=== PATIENT | male | born 1955 | race Caucasian/White ===

== ENCOUNTER 2024-01-11 05:58 | Day surgery (SDC) | payer MEDICARE ==
[2024-01-08 11:08] LABS: BASOPHILS % (AUTO) 0.5 % (0-1); EOSINOPHILS # (AUTO) 0.1 X10'3 (0-0.9); EOSINOPHILS % (AUTO) 1.9 % (0-6); HEMATOCRIT 43.6 % (42.0-52.0); HEMOGLOBIN 14.7 g/dl (14.0-17.9); LYMPHOCYTES # (AUTO) 2.1 X10'3 (1.1-4.8); LYMPHOCYTES % (AUTO) 33.4 % (21-51); MEAN CORPUSCULAR HGB CONC 33.8 g/dL (33.0-36.5); MEAN CORPUSCULAR VOLUME 88.8 FL (78-98); MEAN PLATELET VOLUME 6.8 FL (7.4-10.4); MONOCYTES # (AUTO) 0.5 X10'3 (0-0.9); MONOCYTES % (AUTO) 8.4 % (2-12); NEUTROPHILS # (AUTO) 3.4 X10'3 (1.8-7.7); NEUTROPHILS % (AUTO) 55.8 % (42-75); PLATELET COUNT 250 X10'3 (140-440); RED BLOOD COUNT 4.91 X10'6 (4.70-6.10); RED CELL DISTRIBUTION WIDTH 15.1 % (11.5-14.5); WHITE BLOOD COUNT 6.2 X10'3 (4.5-11.0)
[2024-01-08 11:18] LABS: APTT 31 SECONDS (22-32); PROTHROMBIN TIME 9.8 SECONDS (9.0-12.0)
[2024-01-08 11:19] LABS: ALBUMIN 3.3 G/DL (3.4-5.0); ANION GAP 12 (8-16); BLOOD UREA NITROGEN 17 MG/DL (7-18); BUN/CREATININE RATIO 25.8 (10.0-20.0); CALCIUM 8.9 MG/DL (8.5-10.1); CHLORIDE 107 MMOL/L (99-107); CREATININE 0.66 MG/DL (0.60-1.10); GLUCOSE 109 MG/DL (70-104); SODIUM 144 MMOL/L (135-145); TOTAL CARBON DIOXIDE 25.4 MMOL/L (24-32); eGFR > 90 ML/MIN
[2024-01-08 11:59] LABS: INR 0.9 INR
[~2024-01-11] VITALS: Ht 172.7 cm; Wt 75.6 kg
[2024-01-11] VITALS (10 sets, daily range): BP systolic 122–144; BP diastolic 62–79; PULSE 58–79; RESP 16–18; TEMP 98.6; O2SAT 95–97
[2024-01-11] MEDS ORDERED: MULT-1085 PO (06:22)
[2024-01-11] MEDS ORDERED: potassium (06:22)
[2024-01-11] MEDS ORDERED: OMEG1CAP46 PO (06:22)
[2024-01-11] MEDS ORDERED: CHOL200080 PO (06:23)
[2024-01-11] MEDS ORDERED: VITA-321 (06:24)
[2024-01-11] MEDS ORDERED: LORazepam 0.5 MG tablet PO PRN (06:30)
[2024-01-11] MEDS: diphenhydrAMINE 25mg capsule PO PRN (07:12)
[2024-01-11] MEDS ORDERED: midazolam 1 mg/ML 2ml injection ONE (07:28)
[2024-01-11] MEDS ORDERED: heparin 1,000unit/ml 10ml vial 10 ML ONE (07:28)
[2024-01-11] MEDS ORDERED: fentaNYL/PF 50MCG/1 ML 2ML syringe ONE (07:28)
[2024-01-11] MEDS ORDERED: iohexol 350MG/ML 100ml bottle IV ONE (07:28)
[2024-01-11] MEDS ORDERED: LIDOcaine 1% (10mg/ml) 2ml vial ONE (07:28)
[2024-01-11] MEDS ORDERED: verapamil 2.5 mg/ml inj IV ONE (07:28)
[2024-01-11] MEDS ORDERED: iohexol 350 MG/ML 50ML vial IV ONE (07:28)
[2024-01-11] MEDS ORDERED: nitroGLYCERIN 500mcg/5mL D5W 5 ML IV ONE (07:29)
[2024-01-11 08:55] LABS: ISTAT HGB ART 13.6 g/dl (14.0-17.9); ISTAT Hct ART 40 %PCV (42-52); ISTAT O2 SATURATION ARTERIAL 90 % (95-98); ISTAT SOURCE ART
[2024-01-11 09:02] LABS: ISTAT HGB MIX 13.6 g/dl (14.0-17.9); ISTAT Hct MIX 40 %PCV (42-52); ISTAT O2 SATURATION MIX VENOUS 59 % (60-80); ISTAT SOURCE VEN
[2024-01-11] MEDS ORDERED: normal saline 1000ml 1,000 ML IV ONE (09:55)
== END 2024-01-11 13:05 | disposition home or self-care (01) ==
LOC: SSTAY O 05:58
PROVIDERS: ATTEND Internal Medicine Cardiovascular Disease
DX: I42.9 Cardiomyopathy, unspecified (principal); I25.10 Atherosclerotic heart disease of native coronary artery without angina pectoris; I11.0 Hypertensive heart disease with heart failure; I50.1 Left ventricular failure, unspecified; E78.5 Hyperlipidemia, unspecified; J44.9 Chronic obstructive pulmonary disease, unspecified; E11.9 Type 2 diabetes mellitus without complications; I44.7 Left bundle-branch block, unspecified; Z79.899 Other long term (current) drug therapy; Z87.891 Personal history of nicotine dependence; Z98.890 Other specified postprocedural states; Z98.52 Vasectomy status; Z79.01 Long term (current) use of anticoagulants; Z83.3 Family history of diabetes mellitus; Z82.49 Family history of ischemic heart disease and other diseases of the circulatory system
CPT/HCPCS: 36415; 76937; 80048; 82803; 85014; 85025; 85610; 85730; 93005; 93460; 99152; 99153; A6258; J1644; J2250; J3010; J3490; J7030; Q0163; Q9967; A6402; C1725; C1751; C1894

== ENCOUNTER 2025-03-03 12:12 | Outpatient (CLI) | payer MEDICARE ==
[~2025-03-03 12:12] MED LIST: CHOL200080 PO; MULT-1085 PO; OMEG1CAP46 PO; VITA-321; potassium
--- NOTE | 2025-03-03 14:32 | RADIOLOGY REPORT ---
Exam: US US NON VASCULAR Date: 03/03/2025 12:36 PM Clinical History: INGUINAL MASS Comparison: None Technique: Targeted sonographic evaluation of the soft tissues of the soft tissue was obtained utilizing graysca le and color Doppler imaging. Findings/Impression: Possible hernias are visualized in the bilateral inguinal region limited limited in evaluation on thi s exam. Unable to exclude bowel. Further evaluation with CT is recommended.
== END 2025-03-03 23:59 | disposition home or self-care (01) ==
LOC: RAD 12:12
PROVIDERS: ATTEND Nurse Practitioner
DX: R19.09 Other intra-abdominal and pelvic swelling, mass and lump (principal)
CPT/HCPCS: 76705

== ENCOUNTER 2025-04-14 09:37 | Outpatient (CLI) | payer MEDICARE ==
[2025-04-12 16:10] LABS: ALANINE AMINOTRANSFERASE 28 U/L (12-78); ALBUMIN 3.6 G/DL (3.4-5.0); ALBUMIN/GLOBULIN RATIO 1.1 (1.1-1.5); ALKALINE PHOSPHATASE 68 IU/L (46-116); ANION GAP 12 (8-16); ASPARTATE AMINO TRANSFERASE 28 U/L (10-37); BILIRUBIN,TOTAL 0.8 MG/DL (0.1-1.0); BLOOD UREA NITROGEN 22 MG/DL (7-18); BUN/CREATININE RATIO 22.4 (10.0-20.0); CALCIUM 8.9 MG/DL (8.5-10.1); CHLORIDE 107 MMOL/L (99-107); CREATININE 0.98 MG/DL (0.60-1.10); GLUCOSE 91 MG/DL (70-104); SODIUM 144 MMOL/L (135-145); TOTAL CARBON DIOXIDE 25.2 MMOL/L (24-32); eGFR 76 ML/MIN
[~2025-04-14 09:37] MED LIST changes: +iohexol 300mg/ml 100ml inj. ONE
--- NOTE | 2025-04-14 15:43 | RADIOLOGY REPORT ---
Exam: CT CT ABDOMEN PELVIS W/ IV ORAL CONTRAST History: BI INGUINAL HERNIA, W/O OBST OR GANGRENE, NOT SPCF COMPARISON: None Technique: Multidetector spiral CT of the abdomen and pelvis was performed from lung bases to pubic symphysis. Intravenous contrast was administered during this examination. Portal venous imaging was obtained. Axial, coronal and sagittal multiplanar reformats were performed by the technologist on a separate workstation. Radiation Dose : Abdomen/Pelvis: CTDIvol 14 mGy, DLP 661 mGy*cm. CONTRAST: Type of contrast: Omni 300 Contrast injected: 100 mL Findings: Lung Bases: Septal thickening and patchy opacities in the lung bases. Small bilateral pleural effusio ns right greater than left. Liver: Left hepatic cysts largest measuring up to 31 mm. Gallbladder and biliary Tree: Unremarkable Spleen: Unremarkable Pancreas: The pancreas is normal in appearance without focal lesions or abnormal enhancement. Adrenal Glands: Unremarkable Kidneys: Moderate left hydronephrosis and hydroureter likely secondary to a bladder mass. Subcentim eter right renal cyst. Bladder: Left posterior bladder mass measuring up to 41 mm. Bowel: The stomach is grossly normal in appearance. Small bowel and colon are normal in caliber and d istribution. Normal appendix is visualized in the right lower quadrant without findings of appendicit is. Sigmoid diverticulosis. Ascites: Absent Lymphadenopathy: No mesenteric, retroperitoneal or periportal lymphadenopathy. Abdominal wall and Mesentery: Mild diffuse anasarca and mesenteric engorgement. Vasculature: Infrarenal abdominal aortic aneurysm measuring up to 51 mm with mild mural thrombus. Pelvic Organs: Unremarkable Musculoskeletal: Chronic anterior wedging compression deformity of L2. Advanced degenerative disease L5-S1. Osteopenia. IMPRESSION: 1. Abnormal exam. 2. Septal thickening and patchy opacities in the lung bases. Small bilateral pleural effusions right greater left. Recommend dedicated chest CT. 3. Moderate left hydronephrosis and hydroureter likely secondary to a bladder mass. Bladder mass kristen sures up to 41 mm concerning for bladder cancer. Urology evaluation with cystoscopy and biopsy is re commended. 4. Infrarenal abdominal aortic aneurysm measuring up to 51 mm. This can be further evaluated with CTA of the abdomen and pelvis. 5. Left hepatic cysts. Right renal cyst. Sigmoid diverticulosis. Diffuse anasarca and mesenteric engo rgement. Suspect fluid overload. Clinical correlation and continued follow-up is recommended. No ing uinal hernia demonstrated. Radiation optimization: All CT scans at this facility use at least one of these dose optimization stephanie hniques: Automated exposure control mA and/or kV adjustment per patient size (includes targeted exams where dose is matched to clinical indication) or iterative reconstruction. HS:Y
== END 2025-04-14 23:59 | disposition home or self-care (01) ==
LOC: RAD 09:37
PROVIDERS: ATTEND Nurse Practitioner
DX: I71.43 Infrarenal abdominal aortic aneurysm, without rupture (principal); K40.20 Bilateral inguinal hernia, without obstruction or gangrene, not specified as recurrent; N13.30 Unspecified hydronephrosis; N28.1 Cyst of kidney, acquired; K76.89 Other specified diseases of liver
CPT/HCPCS: 36415; 74177; 80053; Q9967

== ENCOUNTER 2025-07-28 11:36 | Emergency (ER) | payer MEDICARE ==
[~2025-07-28] VITALS: Ht 172.7 cm; Wt 55.8 kg
[~2025-07-28 11:36] MED LIST changes: -iohexol 300mg/ml 100ml inj. ONE
--- NOTE | 2025-07-28 11:59 | Physician Documentation ---
History of Present Illness Chief Complaint: Abdominal Pain Stated Complaint: MULTIPLE MED COMPLAINTS HPI 69 Year old male with multiple medical complaints and chronic conditions 1 of which is a hernia, history of bladder cancer, has noted 1-month-old labs that indicate creatinine of 11 which he states he does have chronic kidney disease but he has never seeing his kidney labs look as bad. endorses weight loss. Patient has chronic pain but increased pain recently. Medication Reconciliation Allergies: Coded Allergies: No Known Allergies (Unverified , 07/28/25) Scheduled Cholecalciferol (Vitamin D3) (Vitamin D3), 1 CAP PO DAILY, (Reported) Multivitamin (Multi Vitamin Daily), 1 TAB PO DAILY, (Reported) Manzanita-3 Fatty Acids/Fish Oil ([place]zanita 3 1,000 mg Softgel), 1 CAP PO DAILY, (Report ed) Vitamin D3/Vitamin K2 (Mk4) (K2 Plus D3 Tablet), DAILY, (Reported) [potassium], Unknown Dose DAILY, (Reported) Past Medical History Other Past Medical History: Bladder cancer Review of Systems All Other Systems at this time: Reviewed and Negative Physical Exam Vital Signs: Temperature: 97.1, Source: Temporal, Heart Rate: 87, Respiratory Rate: 15, BP: 187/98, Pulse Oximetry: 95, Weight: 55.750 Physical Exam VITALS: Reviewed and as above. GENERAL: Alert, no apparent distress. HEENT: Normocephalic, atraumatic, PERRL, EOMI, dry mucosa, no erythema RESPIRATORY: Lungs clear, normal breath sounds, no respiratory distress. CHEST: No accessory muscle use, no retractions CV: Regular rate, rhythm, no edema, no murmur, No: JVD GI: Soft, tender right lower quadrant, bowels sounds present, no rebound, guarding, or rigidity BACK: No CVA tenderness, or swelling MUSCULOSKELETAL: No deformities, no edema SKIN: Warm and dry, no rash NEURO: Oriented x4, No motor or sensory deficit PSYCH: Normal mood and affect, no agitation Progress Results/Orders Results/Orders Vital Signs 07/28/25 11:52 Temp 97.1 Pulse 87 Resp 15 B/P (MAP) 187/98 Pulse Ox 95 EKG/XRAY/CT/US/VASC/MRI CT : Impression Patient: MATT MCKINLEY Medical Record: [id number] [facility] : 1955, Age: 69 Sex: Male Location: ER Patient Status: [facility] ER Service Date/Time: 07/28/251347 Ordering Physician: SHAHANA IBANEZ MD Exam: CT ABDOMEN PELVIS Indication: abd pain renal failure Technique: CT axial images of the abdomen and pelvis are obtained without contrast. Coronal and sagittal reformats were obtained. Radiation Dose Information: CTDI volume is 12 mGy. Dose-length product is 571 mGy*cm Comparison: CT CT ABDOMEN PELVIS W/ IV ORAL CONTRAST on DOS: 04/14/25 FINDINGS: There is limited interpretation of the abdomen and pelvis without administration of intravenous contrast. Pulmonary emphysematous changes. Tiny bilateral pleural effusions. Adrenal glands, spleen, pancreas unremarkable in shape. Complex left hepatic lobe cystic lesion with septations measuring 2.[address] evidence for cholelithiasis. Moderate to severe bilateral hydroureteronephrosis, [id number]-right. Nonobstructing left renal calculus measuring 2 mm. Stomach is partially distended. Small bowel loops normal in caliber. Colonic diverticular disease. Moderate volume stool in the colon. Normal appendix. Abdominal aortic atherosclerotic disease. Aneurysmal dilatation of the infrarenal abdominal aorta measuring 5 x 5.1 cm. There is a large posterior bladder wall mass measuring at least 6.8 x 3.8 cm lateralized towards the left aspect of the bladder. Prostate measures 5.4 cm transversely. Soft tissue edema/ anasarca. Pjev-vt-ihnajujp bilateral sacroiliac degenerative joint disease. Moderate thoracolumbar degenerative disc disease most pronounced at L5-S1. IMPRESSION: Limited evaluation without contrast. Moderate to severe bilateral hydroureteronephrosis which is secondary to a large posterior bladder wall mass measuring 6.8 x 3.8 cm. Recommend urology, oncology consultation. Prostatomegaly. Abdominal aortic aneurysm measuring 5.1 cm. Recommend vascular surgery consultation. Pulmonary emphysematous changes. Soft tissue edema/ anasarca. Complex left hepatic lobe cystic lesion measuring 2.4 cm. Recommend MRI abdomen with and without contrast to characterize. Other findings as described. Electronically Signed by:ASHU MUÑIZ MD Date & Time: 10/10/25 1418 Dictated by: ASHU MUÑIZ MD Dictation date and time: 07/28/251417 Primary Care Provider: NO PRIMARY CARE PROVIDER cc: SHAHANA IBANEZ MD ~ Medical Decision Making Findings 69-year-old male presents with diffuse lower abdominal pain in a known history of bladder cancer, patient was found to be in renal failure and CT demonstrated bilateral hydro nephrosis with a bladder wall mass, additionally the CT demonstrates a 5.1 cm abdominal aneurysm. I discussed the case with Dr. Riggs, who was Urology he recommends patient be transferred for nephrostomy tube placement. We do not have Interventional Radiology here so the patient will need to be transferred. Acutely the patient has some hypokalemia potassium of 5.7 there are no EKG changes he has been treated with fluids and I have started a bicarbonate drip. Case has been discussed at length with the patient images have been reviewed. The cart patient's quality assurance monitor final is a sinus rhythm. His pulse oximetry is interpreted as normal and adequate. Patient's lungs are clear on exam he does have a history of he has history congestive heart failure, but currently he appears to be significantly dehydrated. The patient's 12 lead EKG was interpreted as a sinus rhythm with a normal axis and nonspecific ST abnormalities with a rate of 88 it was interpreted as at 12:50 p.m. 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 The patient states he has a ejection fraction of 20% he is currently on Lasix. Patient is not sure if he had kidney failure but he was told by the urologist that he may need a stent. Signature Scribe Signature: No scribe Attestation: Date: Jul 28, 2025 Time: 21:10 This note accurately reflects clinical decisions, work performed by myself, Paul Holden, DO The note accurately reflects work and decisions made by me.Shahana Ibanez MD 07/31/25 09:27 Addendum Date: Jul 28, 2025 Time: 18:15 Additional note by Paul Holden DO: I took over the care of this patient from previous physician. I reviewed any previous notes available, obtain my own history, review of systems and physical examination was performed by myself. This is a patient with a known history of bladder cancer who presented for evaluation of chronic back pain. He was found to have bilateral hydronephrosis, JULITO, and upon discussion with a local urologist it was indicated that he needs transferred to higher level of care with the interventional radiology for prior cutaneous nephrostomy per hour urologist. Hemodynamics reviewed. He is hemodynamically stable though his blood pressure somewhat self. Heart rate in the 90s. No respiratory distress. Laboratory studies reviewed. CBC is without evidence of leukocytosis, there is anemia of 10.4, and normal platelets. Only 74% neutrophils. Metabolic panel notable for mild hyponatremia at 1:32 a.m., hyperkalemia at 5.7. Normal bicarb. BUN is 104 and creatinine is 4.3. BUN creatinine ratio is 44. Glucose is slightly elevated. Lipase is normal. EKG was reviewed. It shows a sinus rhythm of 88, normal MN interval, wide QRS with left bundle, no QT prolongation, normal axis, no STEMI, no peaked T-waves. Advanced imaging was obtained showing severe bilateral hydronephrosis, large posterior bladder mass. There is an incidental finding of aortic abdominal aneurysm. Hyperkalemia was treat it per protocol. Eventually we received a call from [facility]. Patient was accepted by Dr. Joiner. He will be transferred. CRITICAL CARE TIME: [45] minutes Treatments/Evaluations: Close monitoring and treatment of unstable vital signs, cardiorespiratory, and neurologic status, while maintaining tight balance of fluid, respiratory, and cardiac interventions. This time includes discussing the case with the patient and the patients family. This time does not include all procedures stated elsewhere in this record. This time also includes reviewing old records, labs and radiological studies. This time includes examining and re- examining the patient. Additionally, this time also includes arranging care with admitting and consulting physicians. WICHO FARRIS NP Jul 28, 2025 11:59 OHLSHAHANA YU MD Jul 28, 2025 13:23 PAUL HOLDEN DO Jul 28, 2025 20:52
[2025-07-28 12:46] LABS: MEAN PLATELET VOLUME 7.6 FL (7.4-10.4); RED CELL DISTRIBUTION WIDTH 16.0 % (11.5-14.5)
[2025-07-28 12:56] LABS: CREATININE 4.32 MG/DL (0.60-1.10); TOTAL CARBON DIOXIDE 21.3 MMOL/L (24-32); eCRCL 13 ML/MIN; eGFR 14 ML/MIN
[2025-07-28] MEDS ORDERED: normal saline 500ml IV soln 500 ML IV SCH (13:00)
--- NOTE | 2025-07-28 13:02 | ELECTROCARDIOGRAPH REPORT ---
[facility] Test Date: 2025-07-28 Test Time: 12:50:35 Pat Name: MATT MCKINLEY Department: EMERGENCY ROOM Room: Gender: M Emissions Testing Technician: WEI : 1955 Requested By: SHAHANA STEWART Order Number: [id number] Reading MD: Measurements Intervals [place] Rate: 88 P: 52 MO: 163 QRS: 91 QRSD: 124 T: -78 QT: 355 QTc: 430 Interpretive Statements Sinus rhythm Left bundle branch block Please click the below link to view image of tracing.
[2025-07-28] MEDS: normal saline 500ml IV soln 500 ML IV SCH (13:09)
[2025-07-28] MEDS: normal saline 1000ML IV soln IVB ONE ×2 (13:27→17:41)
--- NOTE | 2025-07-28 14:17 | RADIOLOGY REPORT ---
Indication: abd pain renal failure Technique: CT axial images of the abdomen and pelvis are obtained without contrast. Coronal and sagittal reformats were obtained. Radiation Dose Information: CTDI volume is 12 mGy. Dose-length product is 571 mGy*cm Comparison: CT CT ABDOMEN PELVIS W/ IV ORAL CONTRAST on DOS: 04/14/25 FINDINGS: There is limited interpretation of the abdomen and pelvis without administration of intravenous contrast. Pulmonary emphysematous changes. Tiny bilateral pleural effusions. Adrenal glands, spleen, pancreas unremarkable in shape. Complex left hepatic lobe cystic lesion with septations measuring 2.[address] evidence for cholelithiasis. Moderate to severe bilateral hydroureteronephrosis, [id number]-qnnx-right. Nonobstructing left renal calculus measuring 2 mm. Stomach is partially distended. Small bowel loops normal in caliber. Colonic diverticular disease. Moderate volume stool in the colon. Normal appendix. Abdominal aortic atherosclerotic disease. Aneurysmal dilatation of the infrarenal abdominal aorta measuring 5 x 5.1 cm. There is a large posterior bladder wall mass measuring at least 6.8 x 3.8 cm lateralized towards the left aspect of the bladder. Prostate measures 5.4 cm transversely. Soft tissue edema/ anasarca. [id number]-[id number] bilateral sacroiliac degenerative joint disease. Moderate thoracolumbar degenerative disc disease most pronounced at L5-S1. IMPRESSION: Limited evaluation without contrast. Moderate to severe bilateral hydroureteronephrosis which is secondary to a large posterior bladder wall mass measuring 6.8 x 3.8 cm. Recommend urology, oncology consultation. Prostatomegaly. Abdominal aortic aneurysm measuring 5.1 cm. Recommend vascular surgery consultation. Pulmonary emphysematous changes. Soft tissue edema/ anasarca. Complex left hepatic lobe cystic lesion measuring 2.4 cm. Recommend MRI abdomen with and without contrast to characterize. Other findings as described.
[2025-07-28 14:58] LABS: LEUKOCYTE ESTERASE ,URINE NEGATIVE (Neg); NITRITES, URINE NEGATIVE (Neg); OCCULT BLOOD,URINE NEGATIVE (Neg)
[2025-07-28 15:03] LABS: UA COLLECTION TYPE NON-SPECIFIED
[2025-07-28] MEDS: sodium bicarbonate (8.4%) inj. 150 MEQ in dextrose 5%-water 1,000 ML IV ONE (16:19)
[2025-07-28] MEDS: normal saline 1000ml 1,000 ML IV SCH (20:42)
[2025-07-28] MEDS: dextrose 50%-water 50ml dispensing syringe IV ONE (21:05)
[2025-07-28] MEDS: albuterol 2.5 MG/3 ML nebule NEB ONE (21:05)
[2025-07-28] MEDS ORDERED: calcium gluconate inj. 2 GM in normal saline 100ml IV soln 100 ML IV ONE (21:05)
[2025-07-28] MEDS: insulin regular, human 10 units/0.1 ml syringe IV ONE (21:05)
[2025-07-28] MEDS: CALCIUM GLUC 1gm/50ml NACL,iso 50 ML IV SCH (21:12)
[2025-07-28 22:29] LABS: CREATININE 4.55 MG/DL (0.60-1.10); TOTAL CARBON DIOXIDE 20.8 MMOL/L (24-32); eCRCL 12 ML/MIN; eGFR 13 ML/MIN
[2025-07-28] MEDS: SODIUM ZIRCONIUM CYCLOSILICATE 10 GM POWD.PACK PO SCH (22:32)
[2025-07-29 02:28] VITALS: BP 86/54; PULSE 91; RESP 18; TEMP 97.3; O2SAT 99
== END 2025-07-29 04:41 | disposition short-term general hospital (02) ==
LOC: ER 11:37
DX: N13.8 Other obstructive and reflux uropathy (principal); N17.9 Acute kidney failure, unspecified; N13.30 Unspecified hydronephrosis; N32.9 Bladder disorder, unspecified; G89.29 Other chronic pain; E87.5 Hyperkalemia; Z79.899 Other long term (current) drug therapy; Z85.51 Personal history of malignant neoplasm of bladder
CPT/HCPCS: 36415; 74176; 80048; 80053; 81003; 83690; 85025; 93005; 96360; 96361; 99285; J3490; J7030; J7040; J7070

== ENCOUNTER 2025-08-23 08:36 | Day surgery (SDC) | payer MEDICARE ==
[~2025-08-23] VITALS: Ht 167.6 cm; Wt 69.1 kg
[2025-08-23] VITALS (12 sets, daily range): BP systolic 98–133; BP diastolic 64–90; PULSE 82–95; RESP 14–25; TEMP 98.1; O2SAT 93–100
[~2025-08-23 08:36] MED LIST changes: +ALBU8HFA INH; -CHOL200080 PO; +DOCUMENT DATE & TIME OF BETA-BLOCKER PO ONE; +FLUT1BLS12 INH; +LOSA25TA41 PO; +METO-395 PO; +SPIR25TA PO; -VITA-321; +iohexol 300 MG/1 ML 50ml polymer ONE; -potassium
[2025-08-23] MEDS: ringers solution, lacted 1,000 ML IV SCH (09:39)
[2025-08-23] MEDS: ceFAZolin 2gm/dext,iso 50mL 50 ML IV ONE (09:40)
[2025-08-23] MEDS ORDERED: midazolam 1 mg/ML 2ml injection ONE (10:18)
[2025-08-23] MEDS ORDERED: fentaNYL/PF 50MCG/1 ML 2ML syringe ONE (10:24)
[2025-08-23] MEDS ORDERED: HYDROmorphone/PF 0.2 MG/ML SYRINGE IV PRN ×2 (10:30)
[2025-08-23] MEDS ORDERED: labetalol 20mg/4ml (5mg/ml) syringe IV PRN (10:30)
[2025-08-23] MEDS ORDERED: hydrALAZINE 20mg/ml inj. IV PRN (10:30)
[2025-08-23] MEDS ORDERED: acetaminophen 1,000mg/100ml IV 100 ML IV PRN (10:30)
[2025-08-23] MEDS ORDERED: ondansetron/PF 4mg/2ml inj IV PRN (10:30)
[2025-08-23] MEDS ORDERED: morphine 4 MG/ML inj SYRINge IV PRN (10:30)
[2025-08-23] MEDS ORDERED: ringers solution, lacted 1,000 ML IV SCH (10:30)
[2025-08-23] MEDS ORDERED: 0.9 % SODIUM CHLORIDE 10 ML VIAL ONE (10:45)
[2025-08-23] MEDS ORDERED: ePHEDrine 50MG/ML INJ. ONE (10:45)
[2025-08-23] MEDS ORDERED: LIDOcaine 2% (20mg/ml) 5ml vial ONE (10:45)
[2025-08-23] MEDS ORDERED: dexamethasone sod phosphate 4mg/ml inj. ONE (10:45)
[2025-08-23] MEDS ORDERED: ondansetron/PF 4mg/2ml inj ONE (10:46)
[2025-08-23] MEDS ORDERED: propofol inj 20 ML IV ONE (10:46)
--- NOTE | 2025-08-23 11:00 | OPERATIVE REPORT ---
Operative Report Providers to ~ Date of Procedure: Aug 23, 2025 Pre-Operative Diagnosis: Bladder tumor Post-Operative Diagnosis SAME as PRE-Op Procedure Performed Cystoscopy and Transurethral resection of bladder tumor Surgeon: MD Yessica Cook Dinner None Anesthesiologist: Greta Ambrocio Type of Anesthesia: General Findings: Very large bladder tumor appears muscle invasive ureters not identifiable on either side. 7 cm tumor in greatest dimension. Complications None Prosthetics\Implants used: None Estimated Blood Loss: Minimal Specimen Removed: Bladder tumor Description of Procedure: Patient was brought to the operating room given a general anesthetic and placed in the dorsal lithotomy position he was prepped and draped in the normal sterile fashion a time-out was performed a 26 Vietnamese resectoscope was inserted via urethra the tumor was identified in the posterior of the bladder obstructing both ureteral orifices this I used a resecting loop to the resect this all the way down to the bladder wall after resecting I could not find the ureteral orifices it was clear we were in the muscle layer used the loop for hemostasis and then placed a De La Paz catheter. This was attached to gravity drainage. ASHTYN GREENWOOD MD Aug 23, 2025 11:00
== END 2025-08-23 12:24 | disposition home or self-care (01) ==
LOC: PAS 08:36
PROVIDERS: ATTEND Urology
DX: D49.4 Neoplasm of unspecified behavior of bladder (principal); I11.0 Hypertensive heart disease with heart failure; I50.9 Heart failure, unspecified; E11.9 Type 2 diabetes mellitus without complications; J43.9 Emphysema, unspecified; Z87.891 Personal history of nicotine dependence; Z79.899 Other long term (current) drug therapy; Z98.52 Vasectomy status; Z98.890 Other specified postprocedural states
CPT/HCPCS: 52240; 82948; 87081; J0690; J1100; J2003; J2250; J2405; J2704; J3010; J3490; J7030; J7120; Q9967; Z7506; Z7512; A4618; C1758